=== PATIENT | male | born 1960 | race Caucasian/White ===

== ENCOUNTER → 2021-10-07 | Outpatient (CLI) | payer SELFPAY ==
[2021-10-07 18:00] LABS: Hematocrit 33.8 % (40-54); Hemoglobin 9.7 g/dL (13.0-16.5)
[2021-10-07 18:22] LABS: Iron 172 ug/dL (65-175)
== END | disposition home or self-care (01) ==
LOC: MTLAB 16:06
PROVIDERS: PCP Nurse Practitioner Family; Referring Provider Internal Medicine Gastroenterology; Visit Provider Internal Medicine Gastroenterology
DX: D50.9 Iron deficiency anemia, unspecified (principal)
CPT/HCPCS: 36415; 83540; 85014; 85018

== ENCOUNTER 2022-04-20 09:29 | Emergency (ER) | payer OTHER, SELFPAY ==
[2022-04-20 09:30] VITALS: BP 143/100; PULSE 99; RESP 18; TEMP 36; O2SAT 98; BMI 31.5
--- NOTE | 2022-04-20 09:37 | EDS_ITS ---
HPI History of Present Illness Chief Complaint: Cellulitis Narrative Narrative: 61-year-old male with nonhealing ulcer on the medial aspect of the right fourth toe. Patient was seen at [facility] for this on 03/30/2022 and was put on a prescription for Keflex 500 mg 3 times daily. Patient states he took a wound culture was told that infection would be sensitive to doxycycline although he notes that its not healing. Patient's was seen by Dr. Boone Robins in [place] who did outpatient Dopplers of the bilateral lower extremities and patient was told he has moderate vascular insufficiency in the right lower extremity. Patient states that he was supposed to see the the track machine operator repairer in follow-up but yet he reports that he was referred to a vascular specialist in [place]. This appointment is upcoming. Patient presents today because he went to the urgent care for evaluation of this and since he has been on 2 antibiotics they were sent to the emergency room. Patient states that it does hurt. He has no history of diabetes. He is not had any systemic signs or symptoms. He states that a previous x-ray of the foot showed that there was some bones rubbing together. [facility] Medical History HTN (hypertension) Home Medications amlodipine 10 mg tablet 10 mg PO DAILY 04/20/22 [History Last Taken Unknown] doxycycline hyclate 100 mg capsule 100 mg PO BID 04/20/22 [History Last Taken Unknown] hydrocodone-acetaminophen 5-325mg 5mg-325mg 1 tab PO Q6H PRN Pain 04/20/22 [History Last Taken Unknown] hydrocodone-acetaminophen 5-325mg 5mg-325mg 1 tab PO Q6H PRN pain 3 days #12 tabs 04/20/22 [Rx Last Taken Unknown] sertraline 100 mg tablet 100 mg PO DAILY 04/20/22 [History Last Taken Unknown] sulfamethoxazole 800 mg-trimethoprim 160 mg tablet (Bactrim DS) 1 tab PO BID #20 tabs 04/20/22 [Rx Last Taken Unknown] Allergy/AdvReac Type Severity Reaction Status Date / Time No Known Allergies Allergy Verified 04/20/22 09:30 Surgical History History of spinal fusion Social History Smoking Status: Never smoker ROS ROS ED Constitutional Constitutional ED: Denies chills, fever(s) or sweats Eyes Eyes: Denies blurry vision or change in vision ENT ENT ED: Denies ear pain or sore throat Cardiovascular Cardiovascular: Denies chest pain, palpitations or racing heartbeat Respiratory/Chest Respiratory/Chest: Denies cough, dyspnea or sputum Gastrointestinal Gastrointestinal: Denies abdominal pain, constipation, diarrhea, nausea or vomiting Genitourinary Genitourinary ED: Denies dysuria, hematuria or urinary frequency Musculoskeletal Musculoskeletal: Denies myalgias or neck pain Integumentary Reports rash; Denies abscess or Abrasions Neurologic Neurologic: Denies headache(s), paresthesias or weakness Psychiatric Psychiatric: Denies anxiety, depression, suicidal ideation or suicidal thoughts Endocrine Endocrinology: Denies polydipsia or polyuria EXAM Physical Exam Const Vital Signs: 04/20/22 09:30 Temperature 96.8 F L Temperature Source Temporal Pulse Rate 99 Respiratory Rate 18 Blood Pressure 143/100 H Blood Pressure Mean 114 Pulse Ox 98 Oxygen Delivery Method Room Air Positive well nourished General Appearance ED: NAD HEENT Reports moist mucous membranes Eyes PERRL and EOMs intact bilaterally Neck no lymphadenopathy Chest Wall inspection of chest normal and palpation of chest normal Resp normal respiratory effort and clear to auscultation bilaterally Auscultation: Negative for rales, rhonchi or wheezes Cardio regular rate and regular rhythm Extremity Extremity Narrative: Right fourth toe on the medial aspect has a ulceration approximately 2 to 3 cm on the medial aspect. Tender to palpation. I do not appreciate any lymphangitic streaking. Foot is nontender otherwise. Neuro oriented x3 and CN's II-XII intact bilaterally Sensorium / Orientation: alert Motor Exam: strength 5/5 throughout Skin Skin Narrative: As described above MDM MDM MDM Narrative Medical decision making narrative: Nonhealing ulcer on the medial aspect of the right fourth toe. He is not diabetic.will obtain lab work including CBC, chemistry, sed rate, CRP and a foot x-ray to assess for osteomyelitis versus cellulitis. Wound culture drawn as I cannot find one in the system. CBC does not show leukocytosis.. Hemoglobin hematocrit are stable. Platelets are normal. Renal function electrolytes within normal limits. CRP minimally elevated at 4.31. ESR mildly elevated at 28. X-rays of the right foot were obtained which show mild soft tissue swelling and no evidence of osteomyelitis or bony involvement on my interpretation. Radiology interpreted this and agrees. Patient was discussed with Dr. Alexander who is on-call for foot and ankle. I reviewed the patient's recent imaging showing that he has decreased blood flow in the right lower extremity showing moderate arterial insufficiency. He recommended speaking with Dr. Villeda to see if he could get a visit before he sees him. I did speak with Dr. Villeda and he recommended getting a CTA of the abdomen pelvis with runoffs which does show stenosis at the distal superficial femoral artery. He can see the patient in office tomorrow as an outpatient visit. Dr. Alexander will see him on Wednesday. Patient will be treated with Bactrim. Wound care was discussed with him. He is not supposed to soak the foot. Dr. Alexander request that he use Betadine and dry dressing. Return precautions were discussed. Impression: 1. Nonhealing ulcer right fourth toe 2. Cellulitis 3. Vascular insufficiency right lower extremity Lab Data Attestation: I reviewed the patient's lab results. Labs: Laboratory Results - last 24 hr 04/20/22 04/20/22 10:22 10:22 WBC 9.7 RBC 4.50 L Hgb 14.2 Hct 42.4 MCV 94.2 H MCH 31.6 MCHC 33.5 RDW Std Deviation 48.1 H RDW Coeff of Cindi 13.9 Plt Count 254 MPV 9.0 ESR 28 H Sodium 138 Potassium 4.2 Chloride 104 Carbon Dioxide 31.0 Anion Gap 3 L BUN 30 H Creatinine 0.97 Estim Creat Clear Calc 82.57 Est GFR (MDRD) Af Amer 101 Est GFR (MDRD) Non-Af 83 BUN/Creatinine Ratio 30.8 H Glucose 103 Calcium 10.0 C-React Prot Ext Range 4.31 H Radiography Diagnostic Testing: Clinical Impression(s) from Imaging Studies Foot X-Ray 04/20/22 10:13 IMPRESSION: Mild soft tissue swelling. No evidence of bony destruction. Electronically Signed: Julian Gunn MD at 10:45 EST , Abdomen/Pelvis CTA 04/20/22 12:01 IMPRESSION: At stenosis in the distal portion of the superficial femoral artery bilaterally worse on the right side. 2 vessel runoff in both legs. Electronically Signed: Julian Gunn MD at 13:13 EST , Discharge Plan Triage Chief Complaint: Cellulitis ED Provider: Rod Valladares Dx/Rx/DC Orders Instructions: Cellulitis Dc Prescriptions: New sulfamethoxazole-trimethoprim [Bactrim DS] 800-160 mg tablet 1 tab PO BID Qty: 20 0RF hydrocodone-acetaminophen 5-325 mg tablet 1 tab PO Q6H PRN (Reason: pain) 3 Days Qty: 12 0RF No Action doxycycline hyclate 100 mg capsule 100 mg PO BID Label Comments: take 1 capsule by mouth twice a day hydrocodone-acetaminophen 5-325 mg tablet 1 tab PO Q6H PRN (Reason: Pain) Label Comments: take 1 to 2 tablets by mouth every 6 hours if needed for pain amlodipine 10 mg tablet 10 mg PO DAILY sertraline 100 mg tablet 100 mg PO DAILY Primary Care Provider: Gilbert Cullen NP Referrals: Gilbert Cullen NP, [facility] [Primary Care Provider] - Disposition Disposition: Home, Self Care
--- NOTE | 2022-04-20 10:13 | RAD_ITS ---
STUDY: X-RAY - RIGHT FOOT CLINICAL: Male, 61 years old. Painful ulcer along the plantar aspect overlying the fourth toe. TECHNIQUE: 3 view(s) of the foot. COMPARISON: None. FINDINGS: There is a plantar calcaneal spur. Normal visualized subtalar, talonavicular, calcaneocuboid, tarsal and tarsometatarsal articulations. Normal metatarsi. Normal metatarsophalangeal joint of the great toe. Normal tibial and fibular sesamoid bones. Normal interphalangeal joint of the great toe. Normal phalanges of the great toe. Normal second through fifth metatarsophalangeal joints. Normal interphalangeal joints and phalanges of the lesser toes. Soft tissue swelling. RAD/Foot min 3 Views IMPRESSION: Mild soft tissue swelling. No evidence of bony destruction. Electronically Signed: Julian Gunn MD at 10:45 EST ,
[2022-04-20 10:30] LABS: Hematocrit 42.4 % (40-54); Hemoglobin 14.2 g/dL (13.0-16.5); Mean Corp Hgb Conc 33.5 g/dL (32-36); Mean Corpuscular Hgb 31.6 pg (27.0-32.0); Mean Corpuscular Volume 94.2 fL (80-94); Platelet Count 254 K/mm3 (150-450); RBC Distribution Width CV 13.9 % (11.6-14.6); RBC Distribution Width SD 48.1 fl (35.1-43.9); White Blood Count 9.7 K/mm3 (4.4-11.0)
[2022-04-20 10:43] LABS: Erythrocyte Sedimentation Rate 28 mm/hr (0-20)
[2022-04-20 10:44] LABS: Anion Gap 3 (5-15); BUN 30 mg/dL (7-18); BUN/Creat Ratio 30.8 RATIO (10-20); CRP 4.31 mg/L (0.0-3.0); Chloride 104 mmol/L (98-107); Creatinine, Serum 0.97 mg/dL (0.70-1.30); EST Glomerular Filtration Rate 83 mL/min (>60); Est Glom Filt Rate - Afr Amer 101 mL/min (>60); Estimated Creatinine Clearance 82.57 ml/min; Glucose 103 mg/dL (74-106); Potassium 4.2 mmol/L (3.5-5.1); Sodium Level 138 mmol/L (136-145)
--- NOTE | 2022-04-20 12:01 | CT_ITS ---
STUDY: CTA OF THE ABDOMINAL AORTA AND BILATERAL LOWER EXTREMITIES REASON FOR EXAM: Male, 61 years old. Nonhealing ulcer of the right fourth toe. Poor perfusion. RADIATION DOSAGE (If Supplied By Facility): CTDIvol = ( 8.84 ) mGy, DLP = ( 1498.90 ) mGycm TECHNIQUE: Axial CT angiography multi-detector data acquisition was obtained from the dome of the liver to the level of the ankles following intravenous administration of IV 100mL Isovue-370. Axial images and MIP images were reconstructed from the axial data set. Post-processing of the angiographic images was performed, with multiplanar reformation and 3D reconstruction. Individualized dose optimization techniques were used for this CT. TECHNICAL QUALITY: Good COMPARISON: None. Descriptors of Narrowing: None (0%) Mild (< 50%) Moderate (50-70%) Severe (70-90%) Subtotal/Total Occlusion (90-100%) Non-Evaluable (technically non-diagnostic FINDINGS: Diffuse fatty infiltration of the liver. Mild increased markings at the lung bases suggestive of atelectasis. Coronary artery calcification. Abdominal aorta: Atherosclerotic plaque formation. Celiac and superior mesenteric arteries: No demonstrated narrowing. Inferior mesenteric artery: No demonstrated narrowing. Right renal artery(arteries): No demonstrated narrowing. Left renal artery(arteries): No demonstrated narrowing. Right common iliac artery: Atherosclerotic plaque formation. Right external iliac artery: Atherosclerotic plaque formation. Right internal iliac artery: No demonstrated narrowing. Left common iliac artery: Atherosclerotic plaque formation. Left external iliac artery: Atherosclerotic plaque formation. Left internal iliac artery: No demonstrated narrowing. RIGHT LOWER EXTREMITY Right common femoral artery: Mild atherosclerotic plaque formation. Right profundus femoris: No demonstrated narrowing. Right superficial femoral: Stenotic plaque formation in the distal portion of the superficial femoral artery. Right popliteal artery: Nonstenotic plaque formation in the midportion of the popliteal artery. Right tibioperoneal trunk: No demonstrated narrowing. Right anterior tibial artery: Right stenosis in the proximal and mid portions of the anterior tibial artery. Right posterior tibial artery: No demonstrated narrowing. Right peroneal artery: None visualized. LEFT LOWER EXTREMITY Left common femoral artery: No demonstrated narrowing. Left profundus femoris: No demonstrated narrowing. Left superficial femoral: Tight stenosis in the distal portion of the superficial femoral artery. Left popliteal artery: No demonstrated narrowing. Left tibioperoneal trunk: No demonstrated narrowing. Left anterior tibial artery: No demonstrated narrowing. Left posterior tibial artery: No demonstrated narrowing. Left peroneal artery: Not visualized. CT/CTA Abd w/Runoff W/WO Contrast IMPRESSION: At stenosis in the distal portion of the superficial femoral artery bilaterally worse on the right side. 2 vessel runoff in both legs. Electronically Signed: Julian Gunn MD at 13:13 EST ,
[2022-04-20 13:00] VITALS: BP 134/78; PULSE 78; RESP 16; O2SAT 98
[2022-04-20] MEDS: Smz/Tmp Ds Tablet 1 TABLET PO (13:43)
[2022-04-20] MEDS: HYDROcodone Bitartrate/Apap 5/325 Tablet PO (13:59)
== END 2022-04-20 14:05 | disposition home or self-care (01) ==
PROVIDERS: Emergency Provider Student in an Organized Health Care Education/Training Program; PCP Nurse Practitioner Family; Visit Provider Student in an Organized Health Care Education/Training Program
DX: L97.519 Non-pressure chronic ulcer of other part of right foot with unspecified severity (principal); I10 Essential (primary) hypertension; Z79.899 Other long term (current) drug therapy
CPT/HCPCS: 73630; 75635; 80048; 85027; 85652; 86140; 87070; 87075; 87077; 87186; 87205; 99283; Q9967; A4216

== ENCOUNTER 2022-04-30 11:14 | Emergency (ER) | payer OTHER, SELFPAY ==
[2022-04-30 11:15] VITALS: BP 128/82; PULSE 115; RESP 16; TEMP 36.6; O2SAT 98; BMI 30.1
[2022-04-30] MEDS: morphine 8 MG/ML Syringe 6 MG IV (12:54)
--- NOTE | 2022-04-30 13:01 | RAD_ITS ---
STUDY: X-RAY RIGHT FOOT, FOURTH TOE REASON FOR EXAM: Male, 61 years old. Pain, wound, 4th toe TECHNIQUE: 3 view(s) of the toe were obtained. COMPARISON: Comparison is made with prior study dated 04/20/2022. FINDINGS: Normal visualized metatarsus. Normal metatarsophalangeal (M.T.P) joint. Normal interphalangeal joints. Normal phalanges and interphalangeal joints. Soft tissue swelling. RAD/Toe(s) Min 2 Views IMPRESSION: Soft tissue swelling. Electronically Signed: Julian Gunn MD at 13:40 EST ,
[2022-04-30 13:03] LABS: Erythrocyte Sedimentation Rate 21 mm/hr (0-20)
[2022-04-30 13:05] LABS: Absolute Neutrophil Count 6.2 X10^3/uL (2.0-7.7); Basophil# 0.05 X10^3/uL; Basophil% 0.5 % (0-1); Eosinophil# 0.28 X10^3/uL; Eosinophils% 3.1 % (0-5); Hematocrit 41.6 % (40-54); Hemoglobin 13.8 g/dL (13.0-16.5); Lymphocyte % 19.8 % (19-41); Mean Corp Hgb Conc 33.2 g/dL (32-36); Mean Corpuscular Hgb 30.6 pg (27.0-32.0); Mean Corpuscular Volume 92.2 fL (80-94); Monocyte# 0.69 X10^3/uL; Monocyte% 7.6 % (0-10); NRBC Flagged by Analyzer 0 % (0-5); Neutrophil # 6.24 X10^3/uL (2.7-7.7); Neutrophil % 68.5 % (47-70); Platelet Count 284 K/mm3 (150-450); RBC Distribution Width CV 13.4 % (11.6-14.6); RBC Distribution Width SD 45.5 fl (35.1-43.9); Red Blood Count 4.51 M/mm3 (4.6-6.2); White Blood Count 9.1 K/mm3 (4.4-11.0)
[2022-04-30 13:14] LABS: Anion Gap 6 (5-15); BUN 18 mg/dL (7-18); Chloride 104 mmol/L (98-107); Creatinine, Serum 1.06 mg/dL (0.70-1.30); EST Glomerular Filtration Rate 75 mL/min (>60); Est Glom Filt Rate - Afr Amer 91 mL/min (>60); Estimated Creatinine Clearance 75.56 ml/min; Glucose 117 mg/dL (74-106); Sodium Level 139 mmol/L (136-145)
--- NOTE | 2022-04-30 14:29 | ART_ITS ---
Reason For Study: RLE Ulcer Procedure A bilateral lower extremity continuous wave Doppler with analog waveform analysis,segmental pressures,and ankle brachial indexes without exercise. Left Segmental Pressures Left posterior tibial artery = 135mmHg. Left dorsalis pedis artery = 122mmHg. Left digit = 86 mmHg. The left posterior tibial artery waveforms are triphasic. The left dorsalis pedis waveforms are triphasic. Right Segmental Pressures Right brachial= 116mmHg. Right thigh = 116mmHg. Right calf = 89mmHg. Right posterior tibial artery = 69mmHg. Right dorsalis pedis artery = 47mmHg. Right digit = 27 mmHg. The right posterior tibial artery waveforms are monophasic. The right dorsalis pedis waveforms are monophasic. Indices The right ankle brachial index by the posterior tibial artery is 0.59. The right ankle brachial index by the dorsalis pedis is 0.41. The right digital-brachial index is 0.23. The left ankle brachial index by the posterior tibial artery is 1.16. The left ankle brachial index by the dorsalis pedis is 1.05. The left digital-brachial index is 0.74. VL/Lower Ext Art Exam w/o Exercis Interpretation Summary Right PERFECTO 0.59, severe arterial insufficiency. Doppler/PVR waveforms and segmen sarah pressures reveal distal SFA/popliteal disease. Left PERFECTO 1.16, normal. Doppler/PVR waveforms of the left leg normal at rest. TB I diminished, pedal/digit disease vs spasm Ordering Physician: Brook Holly Referring Physician: Brook Holly Dr. Performed By: Blas Denny RVT
--- NOTE | 2022-04-30 14:44 | EX.ED.DYSGE1 ---
HPI History of Present Illness Chief Complaint: Abscess Informant: patient Narrative Narrative: Patient is a 61-year-old male with history of hypertension, peripheral vascular disease and ulcer of the right fourth toe presenting with concerns of worsening toe wound and right foot swelling. Denies any fever, chills, red streaking or systemic symptoms. Denies any new injury. Patient was initially evaluated last month and Mayuri Hannah was put on a course of Keflex and then doxycycline secondary to wound culture results. He transitioned care to [place] and spoke with Dr. Villeda. On 04/20 he had a CTA of his right lower extremity which showed distal right SFA stenosis. He was placed on a course of Bactrim and then transition to levofloxacin secondary to a second wound culture. The following day he followed up with vascular surgery and likely will need angiography that is scheduled for the middle of May. Patient is concerned his infection is worsening and will need new antibiotics as he finishes course of levofloxacin. Patient also follows with podiatry, Dr. Alexander. Patient has been instructed to do Betadine soaks but notes that he is not been doing them over the past few days. [facility] Medical History HTN (hypertension) Home Medications amlodipine 10 mg tablet 10 mg PO DAILY 04/20/22 [History Last Taken 04/30/22] sertraline 100 mg tablet 100 mg PO DAILY 04/20/22 [History Last Taken 04/29/22] atorvastatin 80 mg tablet 80 mg PO QHS #90 tabs 04/21/22 [Rx Last Taken 04/29/22] cilostazol 50 mg tablet 50 mg PO BID #60 tabs 04/21/22 [Rx Last Taken 04/30/22] clopidogrel 75 mg tablet (Plavix) 75 mg PO DAILY #30 tabs 04/21/22 [Rx Last Taken 04/29/22] Allergy/AdvReac Type Severity Reaction Status Date / Time No Known Allergies Allergy Verified 04/30/22 11:17 Family History Mother Chronic obstructive bronchitis with pulmonary emphysema Father Heart disease Surgical History History of spinal fusion Social History Smoking Status: Never smoker ROS ROS ED Constitutional Constitutional ED: Denies chills or fever(s) Cardiovascular Cardiovascular: Denies chest pain or palpitations Respiratory/Chest Respiratory/Chest: Denies cough or dyspnea Gastrointestinal Gastrointestinal: Denies nausea or vomiting Musculoskeletal Musculoskeletal: Reports other Details: right foot pain and swelling Integumentary Reports other Details: wound to right 4th toe. Neurologic Neurologic: Reports paresthesias RLE; Denies headache(s) Hematologic/Lymphatic Hematologic/Lymphatic: Denies easy bleeding or easy bruising EXAM Physical Exam Const Vital Signs: 04/30/22 11:15 04/30/22 15:39 Temperature 97.9 F Temperature Source Temporal Pulse Rate 115 H Respiratory Rate 16 Blood Pressure 128/82 H 136/91 H Blood Pressure Mean 97 106 Pulse Ox 98 Oxygen Delivery Method Room Air Positive well nourished and well developed General Appearance ED: well developed and NAD HEENT Reports moist mucous membranes Eyes PERRL and EOMs intact bilaterally Neck supple Chest Wall inspection of chest normal Resp normal respiratory effort and clear to auscultation bilaterally Cardio regular rate, regular rhythm and no murmurs Neuro oriented x3 Neuro Narrative: Subjective paresthesias to the right foot, does not follow a dermatomal distribution Sensorium / Orientation: alert Motor Exam: strength 5/5 throughout; Negative for general weakness Skin Skin Narrative: Chronic appearing wound of the medial aspect of the right fourth toe. There is an eschar over the distal aspect of the wound and the proximal and medial aspect there is granulation tissue and minimal drainage present. No surrounding erythema, imaging streaking or other changes. MDM MDM MDM Narrative Medical decision making narrative: Patient is a 61-year-old male with history of hypertension, peripheral arterial disease with known stenosis of his right SFA and a chronic wound to his fourth toe. Patient is concerned because the wound is not healing. Does appear to be a chronic wound but does not appear frankly infected. Patient vital signs are significant for mild tachycardia of uncertain etiology. CBC is normal. Patient denies any chest pain, shortness of breath or difficulty breathing. He does have swelling of his foot but not of his calf and of low special for pulmonary emboli. CBC, ESR, CRP and BMP are checked today. Patient ESR is slightly improved at 21 and his CRP is slightly worsened at 4.9. No leukocytosis. X-ray obtained of the toe looking for signs of osteomyelitis. This is independently interpreted by myself as well as radiology as no acute process and soft tissue swelling. Patient does have dopplerable pulses and I do not think he has an acute ischemic foot. Addition he has brisk capillary refill at this time. Case is discussed with Dr. Villeda who would like to repeat a culture as well as repeat PVRs and does not think more antibiotics are indicated. He will attempt to move up the patient's angiography and will follow the culture results and prescribe antibiotics as needed. Patient is counseled on resuming Betadine washes for his wounds as well. At this time clinically patient does not have signs of significantly worsening infection or critical limb ischemia requiring admission to the hospital. Patient and verbalized agreement and understanding with this plan. Discharged home in stable condition. He is given return precautions to the emergency room. Vascular surgery office visit from 04/21/2022 is independently reviewed. At that time patientWas started on atorvastatin 80 mg, Plavix 75 mg and Pletal 50 mg twice daily. Plan tentatively for angiogram in 1 month and obtain PVRs for review as well as podiatry evaluation. Lab Data Labs: Laboratory Results - last 24 hr 04/30/22 04/30/22 12:53 12:53 WBC 9.1 RBC 4.51 L Hgb 13.8 Hct 41.6 MCV 92.2 MCH 30.6 MCHC 33.2 RDW Std Deviation 45.5 H RDW Coeff of Cindi 13.4 Plt Count 284 MPV 9.0 Immature Gran % (Auto) 0.500 Neut % (Auto) 68.5 Lymph % (Auto) 19.8 [place] % (Auto) 7.6 Eos % (Auto) 3.1 Baso % (Auto) 0.5 Absolute Neuts (auto) 6.2 Absolute Lymphs (auto) 1.80 Nucleated RBC % 0 ESR 21 H Sodium 139 Potassium 4.0 Chloride 104 Carbon Dioxide 29.0 Anion Gap 6 BUN 18 Creatinine 1.06 Estim Creat Clear Calc 75.56 Est GFR (MDRD) Af Amer 91 Est GFR (MDRD) Non-Af 75 BUN/Creatinine Ratio 17.0 Glucose 117 H Calcium 10.0 C-React Prot Ext Range 4.90 H Radiography Diagnostic Testing: Clinical Impression(s) from Imaging Studies Toe X-Ray 04/30/22 13:01 IMPRESSION: Soft tissue swelling. Electronically Signed: Julian Gunn MD at 13:40 EST , Discharge Plan Triage Chief Complaint: Abscess ED Provider: Brook Holly Dx/Rx/DC Orders Clinical Impression: Chronic ulcer of toe of right foot, Ischemic pain of right foot, PAD (peripheral artery disease), Foot pain, right Instructions: ED Wound Care Prescriptions: No Action amlodipine 10 mg tablet 10 mg PO DAILY sertraline 100 mg tablet 100 mg PO DAILY atorvastatin 80 mg tablet 80 mg PO QHS Qty: 90 2RF clopidogrel [Plavix] 75 mg tablet 75 mg PO DAILY Qty: 30 2RF cilostazol 50 mg tablet 50 mg PO BID Qty: 60 2RF Primary Care Provider: Gilbert Cullen NP Referrals: Gilbert Cullen NP, [facility] [Primary Care Provider] - Activity Restrictions/Additional Instructions: Dr. Villeda, vascular surgery, will reach out to you about scheduling your surgery as well as antibiotic changes. Use Betadine washes as we discussed twice a day for your toe. You will be contacted with the culture result if you require antibiotics. Disposition Disposition: Home, Self Care Discharge Date/Time: 04/30/22 15:39
[2022-04-30 15:39] VITALS: BP 136/91
== END 2022-04-30 15:39 | disposition home or self-care (01) ==
PROVIDERS: Emergency Provider Emergency Medicine; PCP Nurse Practitioner Family; Visit Provider Emergency Medicine
DX: L97.519 Non-pressure chronic ulcer of other part of right foot with unspecified severity (principal); I73.9 Peripheral vascular disease, unspecified; I10 Essential (primary) hypertension; Z79.02 Long term (current) use of antithrombotics/antiplatelets; Z79.899 Other long term (current) drug therapy
CPT/HCPCS: 73660; 80048; 85025; 85652; 86140; 87070; 87077; 87186; 87205; 93923; 96374; 99283; A4216

== ENCOUNTER 2022-05-06 08:05 | Day surgery (SDC) | payer SELFPAY, OTHER ==
[2022-05-05 08:28] VITALS: BMI 31.5
[2022-05-06 08:32] LABS: Hematocrit 39.5 % (40-54); Hemoglobin 13.6 g/dL (13.0-16.5); Mean Corp Hgb Conc 34.4 g/dL (32-36); Mean Corpuscular Hgb 31.6 pg (27.0-32.0); Mean Corpuscular Volume 91.6 fL (80-94); Mean Platelet Vol. 8.8 fl (6.2-12.0); Platelet Count 239 K/mm3 (150-450); RBC Distribution Width CV 13.4 % (11.6-14.6); RBC Distribution Width SD 45.8 fl (35.1-43.9); Red Blood Count 4.31 M/mm3 (4.6-6.2); White Blood Count 8.6 K/mm3 (4.4-11.0)
[2022-05-06 08:40] LABS: Anion Gap 6 (5-15); BUN 18 mg/dL (7-18); BUN/Creat Ratio 18.4 RATIO (10-20); Calcium,Total 9.6 mg/dL (8.5-10.1); Chloride 105 mmol/L (98-107); Creatinine, Serum 0.98 mg/dL (0.70-1.30); EST Glomerular Filtration Rate 83 mL/min (>60); Est Glom Filt Rate - Afr Amer 100 mL/min (>60); Estimated Creatinine Clearance 81.73 ml/min; Glucose 124 mg/dL (74-106); Potassium 3.6 mmol/L (3.5-5.1); Sodium Level 140 mmol/L (136-145)
--- NOTE | 2022-05-06 14:20 | OP.PCM_ITS ---
Report of Operation Date of Procedure: 05/06/22 Pre-Operative Diagnosis: atherosclerosis with ulceration right lower extremity Post-Operative Diagnosis: same Surgery/Procedure Performed:: aortogram, right lower extremity runoff right popliteal atherectomy/DCB Surgeon: Melo Villeda Type of Anesthesia: Local and Sedation,Conscious Estimated Blood Loss (mL): 5 Description of Procedure: HPI: Patient is a 61-year-old male with nonhealing right great toe wound and arterial insufficiency with a popliteal artery occlusion. His noninvasive vascular revealed inadequate perfusion to expect wound healing, and he continues to have pain at rest. He is taken down to the [facility] for angiography with possible intervention. Description of procedure: Upon obtaining full consent and verification correct patient procedure site patient was taken to [facility] where he was positioned prepped and draped in usual sterile fashion. Time was performed and conscious sedation administered with Versed fentanyl. On ultrasound guidance the left common femoral artery was accessed in regular fashion and marked with needle wire. This in the medic change from a puncture sheath through which injection femoral angiogram was performed revealing satisfactory placement no extravasation or dissection. Through the my puncture sheath Bentson wire advanced abdominal aorta and the posterior sheath examined for short 5 [place] sheath. Through 5 [place] sheath a Omni Flush catheter advanced abdominal aorta and hand-injection aortogram pelvic angiogram was performed. We then have been in the contralateral leg system with a Omni Flush catheter Bentson wire advancing a catheter in the distal external iliac artery. This position subtraction angiography sequential imaging the right lower extremity was performed revealing abrupt occlusion of the above-knee popliteal with reconstitution of the popliteal behind the knee. He was also noted to have an anterior tibial artery occlusion with peroneal and posterior tibial, preserved runoff to the foot. Patient was on heparin as LAD is a good 30 minutes and serial ACT is performed with heparin adjustments. We then readvanced the Bentso n wire through the office catheter and ultimately navigated to the distal superficial artery. The en face cath was then withdrawn and the 5 [place] sheath exchanged out for a 6 [place] destination sheath. This then advanced and positioned in to the mid to distal superficial femoral artery. Next using a Bentson wire and quick cross catheter we engaged the proximal cap of the lesion and began traversing within the true lumen. Approximately one half of the distance across the occlusion we met resistance were able to make any further advancement. We then exchanged the Bentson wire for a 018 command wire and were able to complete traversal of the lesion remaining with a true lumen. The catheter is then advanced beyond the lesion and hand-injection angiography was performed revealing satisfactory positioning with no dissection and presence within true lumen. Next the bare wire filter wire was advanced through the catheter and positioned in the distal popliteal artery. A [employer] michele 6 distal protection device was advanced and positioned in deployed. Next the [employer] rotational atherectomy thrombectomy device brought in the field prior for manufacture instructions. Was then advanced through the 6 [place] sheath and activated across the lesion for 2 passes. Repeat angiography revealed significant luminal gain with no evidence of distal embolization of the filter. Next a [employer] angio sculpt 5 x 100 angioplasty balloon was brought in the field and advanced into position, inflated to nominal and then deflated withdrawn. Repeat angiography revealed satisfactory resolution of the lesion with small nonflow limiting dissection, no extravasation and no residual stenosis. Next a [employer]tronic paclitaxel coated balloon 5 x 100 was advanced in the position inflated to nominal for 3 minutes and deflated withdrawn. Please angiography revealed satisfactory lesion response but still a small nonflow limiting dissection. There is no evidence of embolization of the filter so the filter was then retrieved and the 6 [place] sheath exchanged for short 6 [place] sheath. It makes clear device in place followed by 2 minutes of manual pressure. Patient was then awakened from his sedation taken to recovery here to complete his bedrest before discharge to home.
[2022-05-06 16:00] VITALS: BP 129/80; PULSE 89; RESP 18; TEMP 36.6; O2SAT 98
[2022-05-06 16:15] VITALS: BP 126/78; PULSE 82; RESP 18; TEMP 36.3; O2SAT 97
[2022-05-06] MEDS: oxyCODONE 5 MG Tablet PO (16:23)
[2022-05-06 16:30] VITALS: BP 128/84; PULSE 90; RESP 18; TEMP 36.2; O2SAT 97
[2022-05-06 17:00] VITALS: BP 119/74; PULSE 89; RESP 18; TEMP 36.2; O2SAT 94
[2022-05-06 18:00] VITALS: BP 125/81; PULSE 91; RESP 18; TEMP 36.2; O2SAT 91
--- NOTE | 2022-05-06 18:30 | NURSING ---
This RN ambulated pt in brewer with no bleeding/hematoma/ or complications to left groin cath site.
[2022-05-07 11:02] LABS: ACT Activated Clotting Time 269 sec (74-137)
== END 2022-05-06 18:48 | disposition home or self-care (01) ==
PROVIDERS: PCP Nurse Practitioner Family; Referring Provider Surgery Trauma Surgery; Visit Provider Surgery Trauma Surgery
DX: I70.235 Atherosclerosis of native arteries of right leg with ulceration of other part of foot (principal); L97.519 Non-pressure chronic ulcer of other part of right foot with unspecified severity; I10 Essential (primary) hypertension; F32.A Depression, unspecified; Z79.899 Other long term (current) drug therapy
CPT/HCPCS: 36246; 36200; 36245; 36415; 37225; 75625; 75710; 76937; 80048; 85027; 85347; 99152; 99153; C1724; C1725; C1760; C1769; C1884; C2623; Q9967; C1887; C1894

== ENCOUNTER → 2022-06-04 | Outpatient (CLI) | payer SELFPAY ==
--- NOTE | 2022-06-04 13:14 | ADUL_ITS ---
Reason For Study: S/P Rt Pop A Endarterectomy Right Velocities Ext. Iliac Artery, dist = 96.3 cm./sec. Common Femoral Artery, mid = 131.9 cm./sec. Supf Femoral Artery, prox = 126.7 cm./sec. Supf Femoral Artery, mid = 129.3 cm./sec. Supf Femoral Artery, dist. = 121.6 cm./sec. Profunda Femoral Artery = 113.8 cm./sec. Popliteal Artery, mid = 119.0 cm./sec. Post. Tibial Artery, prox = 93.0 cm./sec. Post. Tibial Artery, mid = 60.0 cm./sec. Post. Tibial Artery, dist = 60.0 cm./sec. Peroneal Artery, prox = 46.5 cm./sec. Peroneal Artery, mid = 60.0 cm./sec. Peroneal Artery,dist = 68.6 cm./sec. Ant. Tibial Artery, prox = 27.5 cm./sec. Ant. Tibial Artery, mid = 10.0 cm./sec. Ant. Tibial Artery, dist = 14.4 cm./sec. Procedure The exam was diagnostic. Exam performed in department. VL/US Art Duplex Unilat Lower Ext Interpretation Summary Patent right SFA/popliteal vessels with no stenosis, normal waveforms. Diminished velocities/waveforms in anterior tibial artery. Ordering Physician: Shana Goetz Referring Physician: Melo Villeda MD Performed By: Blas Denny, T
--- NOTE | 2022-06-04 13:14 | ART_ITS ---
Reason For Study: S/P Rt Pop A Endarterectomy Procedure A bilateral lower extremity continuous wave Doppler with analog waveform analysis and ankle brachial indexes. Left Segmental Pressures Left brachial= 118mmHg. Left posterior tibial artery = 122mmHg. Left dorsalis pedis artery = 116mmHg. The left posterior tibial artery waveforms are triphasic. The left dorsalis pedis waveforms are triphasic. Right Segmental Pressures Right brachial= 104mmHg. Right posterior tibial artery = 109mmHg. Right dorsalis pedis artery = 107mmHg. The right posterior tibial artery waveforms are triphasic. The right dorsalis pedis waveforms are triphasic. Indices The right ankle brachial index by the posterior tibial artery is 0.92. The right ankle brachial index by the dorsalis pedis is 0.91. The left ankle brachial index by the posterior tibial artery is 1.03. The left ankle brachial index by the dorsalis pedis is 0.98. VL/Ankle Brachial Index Interpretation Summary Right PERFECTO 0.92, mild arterial insufficiency. Doppler/PVR waveforms of the right ankle normal at rest. Left PERFECTO 1.03, normal. Doppler/PVR waveforms of the left ankle normal at rest. Ordering Physician: Shana Goetz Referring Physician: Melo Villeda MD Performed By: Blas Denny RVT
== END | disposition home or self-care (01) ==
PROVIDERS: PCP Nurse Practitioner Family; Visit Provider Physician Assistant
DX: I70.201 Unspecified atherosclerosis of native arteries of extremities, right leg (principal); Z48.812 Encounter for surgical aftercare following surgery on the circulatory system
CPT/HCPCS: 93922; 93926

== ENCOUNTER → 2022-12-31 | Outpatient (CLI) | payer SELFPAY ==
--- NOTE | 2022-12-31 12:42 | RAD_ITS ---
STUDY: X-RAY - LUMBAR SPINE REASON FOR EXAM: Male, 62 years old. M96.1 TECHNIQUE: 4 view(s) of the lumbar spine were obtained. COMPARISON: None FINDINGS: Normal lumbar lordosis. There is mild levoscoliosis. There is a normal alignment of the vertebrae. No evidence for acute fracture or subluxation. Mild multilevel disc space narrowing and endplate spurring. . Postop changes status post bilateral laminectomy and posterior fusion at L2-3, L3-4 and L4-5. . No focal lytic or sclerotic bony lesions are seen Diffuse arterial calcification noted without evidence for aneurysm RAD/L/S Spine Min 4 Views IMPRESSION: Mild scoliosis and degenerative change. Status post multilevel lumbar fusion No radiographic evidence for acute osteomyelitis however, MRI recommended for more definitive evaluation if clinically indicated Electronically Signed: Dariel Cervantes MD at 18:32 EDT ,
== END | disposition home or self-care (01) ==
LOC: RAD 12:34
PROVIDERS: PCP Nurse Practitioner Family; Referring Provider Anesthesiology Pain Medicine; Visit Provider Anesthesiology Pain Medicine
DX: M96.1 Postlaminectomy syndrome, not elsewhere classified (principal)
CPT/HCPCS: 72110